=== PATIENT | female | born 1980 | race Hispanic/Latino ===

== ENCOUNTER 2017-07-15 23:07 | Emergency (ER) | payer MEDICARE ==
--- NOTE | 2017-07-16 06:32 | Emergency Department Report ---
<OTTO KLEIN T - Last Filed: 07/16/17 07:14> ED Back Pain/Injury HPI - General Chief Complaint: Back Pain/Injury Stated Complaint: LOWER BACK PAIN Time Seen by Provider: 07/16/17 06:19 Source: patient Limitations: No Limitations - History of Present Illness Initial Comments: 36 yo female who comes in today due to bilateral low back pain. She states that she fractured her spine when she was 10 years of age, and has increased pain times the last four days. She denies any falls or trauma. MD Complaint: back pain Onset/Timin -: days(s) Similar Symptoms Previously: Yes Severity scale (0 -10): 7 Quality: sharp, aching Consistency: intermittent Improves With: other (rest) Worsens With: movement Context: other (admits to a fracture of the spine at the age of 10) Associated Symptoms: denies: numbness, difficulty urinating, incontinence, fever /chills Treatments Prior to Arrival: other (tylenol ) - Related Data Previous Rx's Medication Instructions Recorded Last Taken Type Loratadine [Claritin] 10 mg PO DAILY #30 tablet 03/13/15 Unknown Rx Promethazine /Codeine 5 ml PO Q6H PRN #150 ml 03/13/15 Unknown Rx [Phenergan/Codeine 6.25-10 mg/5 ml] predniSONE [Deltasone] 20 mg PO QDAY #5 tab 03/13/15 Unknown Rx Levofloxacin [Levaquin TAB] 500 mg PO QDAY #10 tablet 07/16/17 Unknown Rx Allergies Allergy/AdvReac Type Severity Reaction Status Date / Time amoxicillin Allergy Unknown Verified 03/12/15 23:17 ibuprofen Allergy Unknown Verified 03/12/15 23:17 latex Allergy Unknown Verified 03/12/15 23:17 sulfamethoxazole Allergy Unknown Verified 03/12/15 23:17 [From Bactrim] trimethoprim [From Bactrim] Allergy Unknown Verified 03/12/15 23:17 ziprasidone HCl [From Geodon] Allergy Unknown Verified 03/12/15 23:17 ziprasidone mesylate Allergy Unknown Verified 03/12/15 23:17 [From Geodon] ED Review of Systems ROS: Stated complaint: LOWER BACK PAIN Other details as noted in HPI Constitutional: denies: chills, fever Eyes: denies: eye pain, eye discharge, vision change ENT: denies: ear pain, throat pain Respiratory: denies: cough, shortness of breath, wheezing Cardiovascular: denies: chest pain, palpitations Endocrine: no symptoms reported Gastrointestinal: denies: abdominal pain, nausea, diarrhea Genitourinary: denies: urgency, dysuria, discharge Musculoskeletal: as per HPI, back pain Skin: denies: rash, lesions Neurological: denies: headache, weakness, paresthesias Psychiatric: denies: anxiety, depression Hematological/Lymphatic: denies: easy bleeding, easy bruising ED Past Medical Hx - Past Medical History Previous Medical History?: Yes Hx Psychiatric Treatment: Yes (ADHD, BIPOLAR) Additional medical history: HERNIA, VIT D DEFICIENCY, ELEVATED LIPID LEVELS. - Surgical History Past Surgical History?: Yes Additional Surgical History: TUMOR REMOVED FROM RIGHT ARM. KNEE SURGERY. C- SECTIONX 2. RIGHT HAND SURGERY. HERNIA REPAIR - Social History Smoking Status: Current Every Day Smoker Substance Use Type: Marijuana - Medications Home Medications: Home Medications Medication Instructions Recorded Confirmed Last Taken Type Loratadine [Claritin] 10 mg PO DAILY #30 tablet 03/13/15 Unknown Rx Promethazine /Codeine 5 ml PO Q6H PRN #150 ml 03/13/15 Unknown Rx [Phenergan/Codeine 6.25-10 mg/5 ml] predniSONE [Deltasone] 20 mg PO QDAY #5 tab 03/13/15 Unknown Rx Levofloxacin [Levaquin TAB] 500 mg PO QDAY #10 tablet 07/16/17 Unknown Rx ED Physical Exam - General Limitations: No Limitations General appearance: other (sleeping upon entry to the room ) - Head Head exam: Present: atraumatic, normocephalic - Eye Eye exam: Present: normal appearance - ENT ENT exam: Present: mucous membranes moist - Respiratory Respiratory exam: Present: normal lung sounds bilaterally. Absent: respiratory distress - Cardiovascular Cardiovascular Exam: Present: regular rate, normal rhythm. Absent: systolic murmur, diastolic murmur, rubs, gallop - GI/Abdominal GI/Abdominal exam: Present: hernia (per the patient (right lower quadrant)) - Back Exam Back exam: Present: tenderness (bilaterally ), paraspinal tenderness ( bilaterally ) - Neurological Exam Neurological exam: Present: oriented X3 - Psychiatric Psychiatric exam: Present: normal affect - Skin Skin exam: Present: warm, dry, intact, normal color. Absent: rash ED Course Vital Signs 07/15/17 07/16/17 23:39 07:51 Temperature 98.0 F Pulse Rate 100 H 74 Respiratory 18 Rate Blood Pressure 153/90 Blood Pressure 127/74 [Right] O2 Sat by Pulse 96 Oximetry Critical care attestation.: If time is entered above; I have spent that time in minutes in the direct care of this critically ill patient, excluding procedure time. ED Disposition Clinical Impression: Acute cystitis with hematuria, Morbid obesity Chronic back pain Qualifiers: Back pain location: low back pain Back pain laterality: unspecified Sciatica presence: without sciatica Qualified Code(s): M54.5 - Low back pain; G89.29 - Other chronic pain; G89.29 - Other chronic pain Disposition: TO HOME OR SELFCARE Is pt being admited?: No Does the pt Need Aspirin: No Condition: Stable Instructions: Obesity (ED), Chronic Back Pain (ED), Urinary Tract Infection in Women (ED) Additional Instructions: Please increase her fluid intake to 2-3 L of fluid per day Take antibiotic to start today Follow up with the primary care physician in 2-3 days If you develop, fever, nausea or vomiting, abdominal pain and rupa blood and urine please return to the emergency room IVAN otherwise follow-up with your primary care physician. Prescriptions: Levofloxacin [Levaquin TAB] 500 mg PO QDAY #10 tablet Referrals: MIRIAM POP MD [Primary Care Provider] - 2-3 Days Forms: Work/School Release Form(ED) <LUCASCHANTELL CRUZANGELIC Abbott - Last Filed: 07/16/17 08:47> ED Past Medical Hx - Family History Family history: hypertension ED Course - Reevaluation(s) Reevaluation #1: 07/16/17 08:38 Patient urinalysis reflects urinary tract infection and her urine drug screen is negative. Urine is negative ED Medical Decision Making - Lab Data Lab Results 07/16/17 07/16/17 Range/Units 07:41 07:41 Urine Color Yellow (Yellow) Urine Turbidity Clear (Clear) Urine pH 5.0 (5.0-7.0) Ur Specific [place] 1.025 (1.003-1.030) Urine Protein <15 mg/dl (Negative) mg/dL Urine Glucose (UA) Neg (Negative) mg/dL Urine Ketones Neg (Negative) mg/dL Urine Blood Mod (Negative) Urine Nitrite Neg (Negative) Ur Reducing Substances Not Reportable Urine Bilirubin Neg (Negative) Urine Ictotest Not Reportable Urine Urobilinogen 2.0 (<2.0) mg/dL Ur Leukocyte Esterase Lg (Negative) Urine WBC (Auto) 12.0 H (0.0-6.0) /HPF Urine RBC (Auto) 5.0 (0.0-6.0) /HPF U Epithel Cells (Auto) 8.0 (0-13.0) /HPF Urine Bacteria (Auto) 1+ (Negative) /HPF Urine Mucus Few /HPF Urine HCG, Qual Negative (Negative) Urine Opiates Screen Presumptive negative Urine Methadone Screen Presumptive negative Ur Barbiturates Screen Presumptive negative Ur Phencyclidine Scrn Presumptive negative Ur Amphetamines Screen Presumptive negative U Benzodiazepines Scrn Presumptive negative Urine Cocaine Screen Presumptive negative U Marijuana (THC) Screen Presumptive positive Drugs of Abuse Note Disclamer Urine culture sent Urine with moderate amount of blood and patient said she is just coming off her period - Radiology Data Radiology results: report reviewed Chest x-ray revealed no acute cardiopulmonary processes - Medical Decision Making ED course: Patient presented to the emergency room complaining of lower back pain 4 days with no relief. She says she's been taking Tylenol and did not get any relief. She went to her doctor 2 weeks ago and he checked her x-ray and her spine was fractured per patient she says she's had this problem for years due to her injury sustained in childhood. Patient urinalysis reflects that she has acute cystitis with hematuria. Urine is negative and drug screen is negative. Patient has moderate amount in her urine and she said she is just coming off her Period. I discussed the patient that she has a urinary tract infection and will be placed on antibiotic. I gave her detail information regarding her lab work and she voiced understanding of diagnosis and treatment plan and to follow-up with her primary care physician in 2-3 days. Patient discharged home with prescription for Levaquin. Patient was treated in the past with Levaquin therefore go ahead and put her on Levaquin for UTI. I discussed with her that she needs to drink plenty of fluid.
[2017-07-16 07:46] LABS: Urine Drugs of Abuse Note Disclamer
[2017-07-16 07:51] VITALS: BP 127/74
[2017-07-16 07:59] LABS: Bacteria,Urine 1+ /HPF (Negative); Bilirubin,Urine NEG (Negative); Blood,Urine MOD (Negative); Ketones,Urine NEG (Negative); Leukocyte Esterase,Urine LG (Negative); Mucus,Urine FEW /HPF; Nitrite,Urine NEG (Negative); Protein,Urine <15 mg/dL mg/dL (Negative)
== END 2017-07-16 09:11 | disposition home or self-care (01) ==
LOC: ED 23:07
DX: N30.01 Acute cystitis with hematuria (principal); E66.01 Morbid (severe) obesity due to excess calories; M54.5 Low back pain; G89.29 Other chronic pain; F17.200 Nicotine dependence, unspecified, uncomplicated; F12.10 Cannabis abuse, uncomplicated
CPT/HCPCS: 80307; 81001; 81025; 87086

== ENCOUNTER 2017-10-06 12:59 | Emergency (ER) | payer MEDICARE ==
[2017-10-06 13:06] VITALS: BP 135/82
[2017-10-06] MEDS ORDERED: TYLENOL PO ONE (16:58)
--- NOTE | 2017-10-06 17:39 | Emergency Department Report ---
ED Lower Extremity HPI - General Chief Complaint: Extremity Injury, Lower Stated Complaint: RIGHT FOOT PAIN Time Seen by Provider: 10/06/17 16:56 Source: patient Mode of arrival: Ambulatory Limitations: No Limitations - History of Present Illness Initial Comments: This is a 36-year-old female nontoxic, well nourished in appearance, no acute signs of distress presents to the ED with c/o of left foot pain x1 week. Patient denies any trauma to the region. Patient describes pain as aching with level of 8/10. Patient denies any numbness, tingling, fever, chills, headache, nausea, vomiting, chest pain, shortness of breathe. Patient describes pain as aching with level of 8/10. Patient states allergies to amoxicillin, Motrin, latex, Bactrim,and Geodon. Patient medical history includes ADHD, hernia repair , vitamin D deficiency, right hand surgery and knee surgery. Patient stated that her Primary care doctor will give a referral to a foot doctor. MD Complaint: foot injury -: week(s) (1) Injury: Foot: Left Severity: mild Severity scale (0 -10): 8 Improves With: nothing Worsens With: nothing Associated Symptoms: ambulatory. denies: snap/pop sensation, swelling, numbness , tingling, unable to bear weight, able to partially bear weight - Related Data Previous Rx's Medication Instructions Recorded Last Taken Type Loratadine [Claritin] 10 mg PO DAILY #30 tablet 03/13/15 Unknown Rx Promethazine /Codeine 5 ml PO Q6H PRN #150 ml 03/13/15 Unknown Rx [Phenergan/Codeine 6.25-10 mg/5 ml] predniSONE [Deltasone] 20 mg PO QDAY #5 tab 03/13/15 Unknown Rx Levofloxacin [Levaquin TAB] 500 mg PO QDAY #10 tablet 07/16/17 Unknown Rx predniSONE [Deltasone] 40 mg PO QDAY #5 tab 10/06/17 Unknown Rx traMADol [Ultram] 50 mg PO Q6HR PRN #12 tablet 10/06/17 Unknown Rx Allergies Allergy/AdvReac Type Severity Reaction Status Date / Time amoxicillin Allergy Unknown Verified 03/12/15 23:17 ibuprofen Allergy Unknown Verified 03/12/15 23:17 latex Allergy Unknown Verified 03/12/15 23:17 sulfamethoxazole Allergy Unknown Verified 03/12/15 23:17 [From Bactrim] trimethoprim [From Bactrim] Allergy Unknown Verified 03/12/15 23:17 ziprasidone HCl [From Geodon] Allergy Unknown Verified 03/12/15 23:17 ziprasidone mesylate Allergy Unknown Verified 03/12/15 23:17 [From Geodon] ED Review of Systems ROS: Stated complaint: RIGHT FOOT PAIN Other details as noted in HPI Constitutional: denies: chills, fever Eyes: denies: eye pain, eye discharge, vision change ENT: denies: ear pain, throat pain Respiratory: denies: cough, shortness of breath, wheezing Cardiovascular: denies: chest pain, palpitations Endocrine: no symptoms reported Gastrointestinal: denies: abdominal pain, nausea, diarrhea Genitourinary: denies: urgency, dysuria, discharge Musculoskeletal: arthralgia. denies: back pain, joint swelling Skin: denies: rash, lesions Neurological: denies: headache, weakness, paresthesias Psychiatric: denies: anxiety, depression Hematological/Lymphatic: denies: easy bleeding, easy bruising ED Past Medical Hx - Past Medical History Previous Medical History?: Yes Hx Psychiatric Treatment: Yes (ADHD, BIPOLAR) Additional medical history: HERNIA, VIT D DEFICIENCY, ELEVATED LIPID LEVELS. - Surgical History Past Surgical History?: Yes Additional Surgical History: TUMOR REMOVED FROM RIGHT ARM. KNEE SURGERY. C- SECTIONX 2. RIGHT HAND SURGERY. HERNIA REPAIR - Social History Smoking Status: Current Every Day Smoker Substance Use Type: Alcohol - Medications Home Medications: Home Medications Medication Instructions Recorded Confirmed Last Taken Type Loratadine [Claritin] 10 mg PO DAILY #30 tablet 03/13/15 Unknown Rx Promethazine /Codeine 5 ml PO Q6H PRN #150 ml 03/13/15 Unknown Rx [Phenergan/Codeine 6.25-10 mg/5 ml] predniSONE [Deltasone] 20 mg PO QDAY #5 tab 03/13/15 Unknown Rx Levofloxacin [Levaquin TAB] 500 mg PO QDAY #10 tablet 07/16/17 Unknown Rx predniSONE [Deltasone] 40 mg PO QDAY #5 tab 10/06/17 Unknown Rx traMADol [Ultram] 50 mg PO Q6HR PRN #12 tablet 10/06/17 Unknown Rx ED Physical Exam - General Limitations: No Limitations General appearance: alert, in no apparent distress - Head Head exam: Present: atraumatic, normocephalic - Eye Eye exam: Present: normal appearance - ENT ENT exam: Present: mucous membranes moist - Neck Neck exam: Present: normal inspection - Respiratory Respiratory exam: Present: normal lung sounds bilaterally. Absent: respiratory distress - Cardiovascular Cardiovascular Exam: Present: regular rate, normal rhythm. Absent: systolic murmur, diastolic murmur, rubs, gallop - GI/Abdominal GI/Abdominal exam: Present: soft, normal bowel sounds - Extremities Exam Extremities exam: Present: normal inspection, full ROM, tenderness, normal capillary refill. Absent: pedal edema, joint swelling, calf tenderness - Expanded Lower Extremity Exam Left Hip exam: Present: normal inspection, full ROM Upper Leg exam: Present: normal inspection, full ROM Knee exam: Present: normal inspection, full ROM Lower Leg exam: Present: normal inspection, full ROM. Absent: tenderness, swelling, abrasion, laceration, ecchymosis, deformity, crepidus, dislocation, erythema, palpable cord, Ida's sign Ankle exam: Present: normal inspection, full ROM. Absent: tenderness, swelling , abrasion, laceration, ecchymosis, deformity, crepidus, dislocation, erythema, anterior draw sign Foot/Toe exam: Present: normal inspection, full ROM, tenderness (plantar foot region). Absent: swelling, abrasion, laceration, ecchymosis, deformity, crepidus, dislocation, erythema, amputation, puncture wound, foreign body, calcaneal tenderness, tenderness at base of 5th metatarsal, nail avulsion, subungual hematoma Neuro vascular tendon exam: Present: no vascular compromise. Absent: pulse deficit, abnormal cap refill, motor deficit, tendon deficit, extremity cold to touch, pallor, abnormal 2-point discrimination, decreased fine/light touch, foot drop, peroneal nerve deficit, significant pain with passive ROM of distal joint Gait: Positive: observed and limited by pain 1 - pain - Back Exam Back exam: Present: normal inspection, full ROM - Neurological Exam Neurological exam: Present: alert, oriented X3 - Psychiatric Psychiatric exam: Present: normal affect, normal mood - Skin Skin exam: Present: warm, dry, intact, normal color. Absent: rash ED Course Vital Signs 10/06/17 10/06/17 13:04 17:02 Temperature 98.3 F Pulse Rate 92 H Respiratory 18 20 Rate Blood Pressure 135/82 O2 Sat by Pulse 97 Oximetry - Reevaluation(s) Reevaluation #1: 10/06/17 17:40 Patient is speaking in full sentences with no signs of distress noted. ED Lower Extremity MDM - Medical Decision Making This is a 36-year-old female that presents with plantar fasciitis. Patient is stable and was examined me. X-ray has been obtained and dictated by radiologist within normal limits. Patient is notified of x-ray results with noted by the patient. Upon examination there is tenderness in the plantar fascia region. I'll treat patient with prednisone and Ultram. I instructed the patient not to operate any machinery while taking due to drowsiness. PATIENT DID RECEIVED Tylenol 975 PO WHICH PATIENT STATES SYMPTOMS ARE IMPROVING AND THIS SUBSIDED. PATIENT WAS INSTRUCTED Follow-up with a primary care doctor/ orthopedic in 3-5 days or if symptoms worsen and continue return to emergency room as soon as possible. At time time of discharge, the patient does not seem toxic or ill in appearance. No acute signs of distress noted. Patient agrees to discharge treatment plan of care. No further questions noted by the patient. Critical care attestation.: If time is entered above; I have spent that time in minutes in the direct care of this critically ill patient, excluding procedure time. ED Disposition Clinical Impression: Plantar fasciitis Disposition: DC-01 TO HOME OR SELFCARE Is pt being admited?: No Does the pt Need Aspirin: No Condition: Stable Instructions: Plantar Fasciitis (ED), Prednisone (By mouth), Tramadol (By mouth ) Additional Instructions: Follow-up with a primary care doctor/orthopedic in 3-5 days or if symptoms worsen and continue return to emergency room as soon as possible. Do not operate any machinery while taking Ultram due to drowsiness. Prescriptions: predniSONE [Deltasone] 40 mg PO QDAY #5 tab traMADol [Ultram] 50 mg PO Q6HR PRN #12 tablet PRN Reason: Pain Referrals: PRIMARY CARE, [Primary Care Provider] - 3-5 Days ARELY STONE MD [Staff Physician] - 3-5 Days ANATOLY MARTINEZ MD [Staff Physician] - 3-5 Days [facility] [Outside] - 3-5 Days [facility] [Outside] - 3-5 Days Forms: Work/School Release Form(ED)
--- NOTE | 2017-10-06 17:44 | XRay Report ---
FINAL REPORT PROCEDURE: XR ANKLE 3+V RT TECHNIQUE: Three-view right ankle HISTORY: ankle right pain COMPARISON: No prior studies are available for comparison. FINDINGS: Morbid obesity with underlying soft tissue swelling suspected. Moderate degenerative changes of the ankle proximal foot area. No definite evidence of acute fracture. IMPRESSION: No acute fracture right ankle
--- NOTE | 2017-10-06 17:47 | XRay Report ---
FINAL REPORT PROCEDURE: XR FOOT 2V RT TECHNIQUE: Two view right foot HISTORY: foot pain right COMPARISON: Three-view right ankle FINDINGS: Morbid obesity right right foot with diffuse soft tissue swelling. No definite evidence of acute fracture. Calcaneal spurring. Mild degenerative change IMPRESSION: No acute fracture
== END 2017-10-06 17:57 | disposition home or self-care (01) ==
LOC: ED 12:59
DX: M72.2 Plantar fascial fibromatosis (principal); F17.200 Nicotine dependence, unspecified, uncomplicated